=== PATIENT | male | born 1995 | race Caucasian/White ===

== ENCOUNTER 2017-07-09 14:48 | Emergency (ER) | payer BC ==
[~2017-07-09] VITALS: Ht 165.1 cm; Wt 61.2 kg
[~2017-07-09 14:48] MED LIST: CLARITIN10 MG PO; ZITHROMAX Z PA250 MG PO
[2017-07-09 17:11] VITALS: BP 125/86
== END 2017-07-09 15:28 | disposition home or self-care (01) ==
LOC: ED 14:48
DX: J06.9 Acute upper respiratory infection, unspecified (principal); J10.1 Influenza due to other identified influenza virus with other respiratory manifestations; F17.200 Nicotine dependence, unspecified, uncomplicated

== ENCOUNTER 2020-02-24 09:32 | Emergency (ER) | payer BC ==
[~2020-02-24] VITALS: Ht 165.1 cm; Wt 59.0 kg
[2020-02-24 09:39] VITALS: BP 127/84
[2020-02-24] MEDS ORDERED: CEPHALEXIN500 M1 PO (09:50)
[2020-02-24] MEDS ORDERED: ANTIBIOTIC28.4 GM T (09:50)
== END 2020-02-24 12:24 | disposition home or self-care (01) ==
LOC: ED 09:32
DX: S61.303A Unspecified open wound of left middle finger with damage to nail, initial encounter (principal); W26.0XXA Contact with knife, initial encounter; Y93.89 Activity, other specified; Y92.89 Other specified places as the place of occurrence of the external cause; Y99.8 Other external cause status